=== PATIENT | male | born 1950 | race Caucasian/White ===

== ENCOUNTER → 2017-02-25 | Outpatient (CLI) | payer MEDICARE, BC ==
[~2017-02-25] MED LIST: ASPIR 8181 MG PO; GLUCOPHAGE 850850 MG PO; KEFLEX500 MG PO; KLONOPIN TAB 00.5 MG PO; LIPITOR TAB 1010 MG PO; NORCO 5-325 TA1 EACH PO; ULTRAM50 MG PO; VITAMIN D50000 UNIT PO; [UNRECOGNIZED DRUG - OTHER] PO
== END ==
LOC: EMI 08:15
DX: S09.90XA Unspecified injury of head, initial encounter (principal); G31.9 Degenerative disease of nervous system, unspecified
CPT/HCPCS: 70551

== ENCOUNTER → 2021-04-20 | Outpatient (CLI) | payer OTHER | LOC: KOH-I 15:58 | DX: H81.10 Benign paroxysmal vertigo, unspecified ear (principal) | CPT/HCPCS: 70450 ==